=== PATIENT | male | born 2000 | race Caucasian/White ===

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

== ENCOUNTER → 2021-10-23 | Outpatient (CLI) | payer BC ==
[~2021-10-23] MED LIST: IBUPROFEN800 MG PO
== END ==
LOC: KOH-I 11:25
DX: M54.50 Low back pain, unspecified (principal)
CPT/HCPCS: 72100